=== PATIENT | female | born 1960 | race Caucasian/White ===

== ENCOUNTER 2017-10-24 06:47 | Emergency (ER) | payer MEDICARE, MEDICAID ==
[2017-10-24 07:13] VITALS: BP 143/91; PULSE 71; RESP 18; TEMP 98.4; O2SAT 99
--- NOTE | 2017-10-24 07:57 | C.PDOC ---
History Of Present Illness 57 y/o female presents to the ER complaining of left heel pain which has been present for the past 2 weeks. Patient denies having injuries, trauma, weakness, and numbness. Time Seen by Provider: 10/24/17 07:17 Chief Complaint (Nursing): Lower Extremity Problem/Injury History Per: Patient History/Exam Limitations: no limitations Onset/Duration Of Symptoms: Days Current Symptoms Are (Timing): Still Present Severity: Moderate Past Medical History Reviewed: Historical Data, Nursing Documentation, Vital Signs Vital Signs: Last Vital Signs Temp 98.4 F 10/24/17 07:11 Pulse 71 10/24/17 07:11 Resp 18 10/24/17 07:11 BP 143/91 H 10/24/17 07:11 Pulse Ox 99 10/24/17 08:12 - Medical History PMH: No Chronic Diseases Surgical History: No Surg Hx Family History: States: No Known Family Hx - Social History Hx Alcohol Use: No Hx Substance Use: No - Immunization History Hx Tetanus Toxoid Vaccination: Yes Hx Influenza Vaccination: Yes Hx Pneumococcal Vaccination: Yes Review Of Systems Except As Marked, All Systems Reviewed And Found Negative. Constitutional: Negative for: Fever, Chills Musculoskeletal: Positive for: Other (left heel pain) Neurological: Negative for: Weakness, Numbness Physical Exam - Physical Exam Appears: Non-toxic, No Acute Distress Skin: Normal Color, Warm, Dry Head: Atraumatic, Normacephalic Eye(s): bilateral: Normal Inspection Nose: Normal Oral Mucosa: Moist Neck: Supple Chest: Symmetrical Respiratory: Normal Breath Sounds, No Rales, No Rhonchi, No Wheezing Gastrointestinal/Abdominal: Normal Exam, Soft, No Tenderness, No Guarding, No Rebound Extremity: Normal ROM, Tenderness (tenderness to left heel), No Swelling, Other (negative Saini's, negative Ihsan's sign) Pulses: Left Dorsalis Pedis: Normal (DP/PT), Right Dorsalis Pedis: Normal (DP/PT ) Neurological/Psych: Oriented x3, Normal Speech ED Course And Treatment O2 Sat by Pulse Oximetry: 99 (RA) Pulse Ox Interpretation: Normal Medical Decision Making Medical Decision Making: Assessment: Left Heel Pain Plan: --X-Ray-Left Foot Updates: X-Ray-Left Foot is positive for heel spur. Patient has been discharged and instructed to follow up with podiatry clinic in 2 days. Disposition Counseled Patient/Family Regarding: Studies Performed, Diagnosis, Need For Followup, Rx Given - Disposition Referrals: Podiatry Clinic [Outside] Disposition: HOME/ ROUTINE Disposition Time: 08:11 Condition: STABLE Additional Instructions: follow up with podiatry within 2 days call to make an appointment take medications as needed for pain return to ER if symptoms worsens or progress Prescriptions: Naproxen [Naprosyn] 500 mg PO BID PRN #16 tab PRN Reason: Pain, Moderate (4-7) Instructions: Heel Pain (Caused by Plantar Fasciitis) (DC), Plantar Fasciitis Exercises Forms: General Discharge Instructions, [facility] (Maori), Work Excuse - Clinical Impression Clinical Impression: Heel pain - Scribe Statement The provider has reviewed the documentation as recorded by the Tom Graves Provider Attestation: All medical record entries made by the Tom were at my direction and personally dictated by me. I have reviewed the chart and agree that the record accurately reflects my personal performance of the history, physical exam, medical decision making, and the department course for this patient. I have also personally directed, reviewed, and agree with the discharge instructions and disposition.
--- NOTE | 2017-10-24 13:11 | RAD ---
Date of service: 10/24/2017 PROCEDURE: Left Foot Radiographs. HISTORY: Left heel and foot Pain. No history of recent/ related trauma provided COMPARISON: None. FINDINGS: BONES: Small plantar calcaneal spur. No fracture. JOINTS: Normal. SOFT TISSUES: Normal. OTHER FINDINGS: None. IMPRESSION: Plantar calcaneal spur above galvin unremarkable study.
== END 2017-10-24 08:52 | disposition home or self-care (01) ==
LOC: C.ER 06:47
DX: M79.672 Pain in left foot (principal)

== ENCOUNTER 2018-07-29 07:25 | Emergency (ER) | payer MEDICARE, MEDICAID ==
[2018-07-29 07:39] VITALS: BP 123/43; PULSE 90; RESP 17; TEMP 98.4; O2SAT 98
[2018-07-29] MEDS ORDERED: Lidocaine 5% Patch TD STA (08:25)
[2018-07-29] MEDS ORDERED: Dexamethasone 4 mg/1 ml IM STA (08:25)
[2018-07-29] MEDS ORDERED: Lidocaine 5% Patch TD ONE (08:32)
--- NOTE | 2018-07-29 09:16 | C.PDOC ---
History Of Present Illness 58 year old female presents to the ED complaining of low back pain for one day. Reports she lifted heavy boxes at work yesterday and feels like she strained her lower back. States she has been using Icy Hot and alternating between hot and warm compresses to area with only minimal relief. Notes pain is worse when she moves or bends down. Denies any falls or trauma. Denies any abdominal pain, chest pain, shortness of breath, bowel or bladder incontinence, weakness, numbness, tingling, or saddle anesthesia. Time Seen by Provider: 07/29/18 07:43 Chief Complaint (Nursing): Back Pain History Per: Patient History/Exam Limitations: no limitations Current Symptoms Are (Timing): Still Present Quality Of Discomfort: "Pain" Previous Symptoms: None Associated Symptoms: None Exacerbating Factor(s): Movement Past Medical History Reviewed: Historical Data, Nursing Documentation, Vital Signs Vital Signs: Last Vital Signs Temp 98.4 F 07/29/18 07:37 Pulse 90 07/29/18 07:37 Resp 17 07/29/18 07:37 BP 123/43 L 07/29/18 07:37 Pulse Ox 98 07/29/18 07:37 Primary Care Provider: Shaik Ruiz - Medical History PMH: No Chronic Diseases Surgical History: No Surg Hx Family History: States: No Known Family Hx - Social History Hx Alcohol Use: No Hx Substance Use: No - Immunization History Hx Tetanus Toxoid Vaccination: Yes Hx Influenza Vaccination: Yes Hx Pneumococcal Vaccination: Yes Review Of Systems Except As Marked, All Systems Reviewed And Found Negative. Constitutional: Negative for: Fever, Chills Cardiovascular: Negative for: Chest Pain Respiratory: Negative for: Shortness of Breath Gastrointestinal: Negative for: Abdominal Pain Genitourinary: Negative for: Incontinence Musculoskeletal: Positive for: Back Pain Neurological: Negative for: Weakness, Numbness Physical Exam - Physical Exam Appears: Non-toxic, No Acute Distress Skin: Warm, Dry, No Rash Head: Atraumatic, Normacephalic Eye(s): bilateral: Normal Inspection Nose: Normal Oral Mucosa: Moist Throat: No Erythema, No Exudate, No Drooling Neck: Normal ROM, Supple Chest: Symmetrical Cardiovascular: Rhythm Regular Respiratory: Normal Breath Sounds, No Rales, No Rhonchi, No Wheezing Gastrointestinal/Abdominal: Soft, No Tenderness, No Distention, No Guarding, No Rebound Back: Normal Inspection, No CVA Tenderness, No Vertebral Tenderness, Other (left sided parathoracic tenderness) Extremity: Normal ROM, No Swelling Extremity: Bilateral: Atraumatic, Normal Color And Temperature, Normal ROM Neurological/Psych: Oriented x3, Normal Speech, Normal Motor, Normal Sensation Gait: Steady ED Course And Treatment O2 Sat by Pulse Oximetry: 98 (RA) Pulse Ox Interpretation: Normal Medical Decision Making Medical Decision Making: Plan - Flexeril 10mg PO - Decadron 10mg IM - Toradol 30mg IM - Lidoderm patch On re-examination, patient is resting comfortably in no acute distress. Patient reports improvement of symptoms. Patient given follow up instructions. Instructed to return to ER if symptoms worsen or new symptoms arise. Disposition - Disposition Referrals: Jez Kelley MD [Non-Staff] - Disposition: HOME/ ROUTINE Disposition Time: 09:16 Condition: GOOD Additional Instructions: Follow up with the medical doctor within 1-2 days, Return if worsened. Prescriptions: Cyclobenzaprine [Flexeril] 5 mg PO TID #21 tab Lidocaine 5% [Lidoderm] 1 each TP DAILY #10 patch Naproxen [Naprosyn] 500 mg PO BID #20 tab Instructions: Low Back Pain in Adults Forms: [facility] (Persian), Work Excuse - Clinical Impression Clinical Impression: Low back strain - PA / GARAGE HAND / Resident Statement MD/DO has reviewed & agrees with the documentation as recorded. - Scribe Statement The provider has reviewed the documentation as recorded by the Scribe Yu Mary All medical record entries made by the Refugioibe were at my direction and personally dictated by me. I have reviewed the chart and agree that the record accurately reflects my personal performance of the history, physical exam, medical decision making, and the department course for this patient. I have also personally directed, reviewed, and agree with the discharge instructions and disposition.
== END 2018-07-29 09:26 | disposition home or self-care (01) ==
LOC: C.ER 07:25
DX: S39.012A Strain of muscle, fascia and tendon of lower back, initial encounter (principal); X50.0XXA Overexertion from strenuous movement or load, initial encounter; Y92.89 Other specified places as the place of occurrence of the external cause; Y99.0 Civilian activity done for income or pay
CPT/HCPCS: 96372; 99283; J1100; J1885